=== PATIENT | female | born 1945 | race Caucasian/White ===

== ENCOUNTER 2017-03-11 09:12 | Day surgery (SDC) | payer MEDICARE ==
[~2017-03-11] VITALS: Ht 162.6 cm; Wt 68.0 kg
[~2017-03-11 09:12] MED LIST: 0.9% Sodium Chloride 1,000 ML IV SCH; ASCO1500 PO; ASPI-973 PO; B COMPLEX PO; CALC600T12 PO; CHOL10008 PO; GLUC100016 PO; LOVA20TA PO; MULT1CAP33 PO; OMEG1600 PO; OXCA150T PO; Sodium Chloride LOK Flush 10 mL Syringe IV PRN; UBID100C25 PO; fentaNYL-PF 50 mCg/mL 2 mL Inj IVPUSH PRN
[2017-03-11 09:52] VITALS: BP 110/64; PULSE 67; RESP 16; O2SAT 98
[2017-03-11] MEDS ORDERED: 0.9% Sodium Chloride 1,000 ML IV ONE (10:56)
[2017-03-11 11:00] VITALS: BP 106/57; PULSE 68; RESP 16; O2SAT 97
[2017-03-11 11:10] VITALS: BP 86/51; PULSE 76; RESP 16; O2SAT 97
[2017-03-11 11:20] VITALS: BP 103/60; PULSE 73; RESP 16; O2SAT 97
--- NOTE | 2017-03-11 23:03 | ENDO ---
[address] [address] ENDOSCOPY PROCEDURE PATIENT: KRAIG MACK : 1945 MR#: [id number] ADMIT: 03/11/2017 JOB ID: [id number] DATE: 03/11/2017 PRIMARY PROVIDER: Cora Garcia MD. PROCEDURE: 1. Colonoscopy. 2. Cold forceps polypectomy. INDICATIONS: A 71-year-old female with a personal history of colon polyps returning for surveillance. EQUIPMENT: PCF H 180 AL. SEDATION: 5 mg Versed and 100 mcg fentanyl. COMPLICATIONS: None identified. BOWEL PREPARATION: Fair, adequate exam. PROCEDURE INFORMATION: After the risks and benefits were explained, written and verbal informed consent was obtained. The patient was brought into the endoscopy suite and placed into the left lateral decubitus position. Sedation was achieved using the above-stated medications with the addition of oxygen via nasal cannula. A digital rectal examination was accomplished. No significant pathology appreciated. The scope was introduced into the rectum and advanced to the cecum as identified by the appendiceal orifice and ileocecal valve. The scope was slowly withdrawn to carefully examine the mucosa for any defects or lesions. Retroflexed views were avoided in the rectum. Multiple direct views were made through the dentate line for exclusion of pathology. The colon was decompressed. The scope removed from the patient who tolerated the procedure well. FINDINGS: Rather extensive diverticulosis through the sigmoid region. In the descending, there was a very small polyp. At first, I thought this was going to require or be best removed with a snare. The snare seemed to just come over the top of this diminutive polyp and we therefore removed it with cold forceps. I did not appreciate any other significant pathology throughout. ENDOSCOPIC DIAGNOSES: 1. Colon polyp. 2. Diverticulosis. RECOMMENDATIONS: 1. Await histopathology. 2. Repeat colonoscopy five years.
--- NOTE | 2017-03-13 19:17 | PATH ---
SURGICAL PATHOLOGY Attending Physician:Lizette Mariscal CASE STATUS: Signed Out PATIENT NAME: KRAIG MACK PID: [id number] : 1945 DATE COLLECTED:03/11/2017 17:51 SPECIMEN: Colon, Biopsy CLINICAL HISTORY: 1). COLON POLYP FINAL DIAGNOSIS: Colon, Polyp, Biopsy: Tangentially oriented portion of colorectal mucosa with features suggestive of sessile serrated adenoma. ICD10: K63.5 GROSS DESCRIPTION: The specimen is received in one formalin filled container labeled with the patient's name, sublabeled "colon polyp" and consists of a 0.3 x 0.3 x 0.3 CM portion of tissue which is entirely submitted in one cassette. 03/11/2017 [facility] ICD-9 CODES: CPT CODES: 1: 03852 Electronically Signed Out Tish Brand MD [facility] Pathology [facility] [address], [place] [address] Technical component performed at [facility], [facility] [address], [place], [address]
== END 2017-03-11 23:59 | disposition home or self-care (01) ==
LOC: END 09:12
PROVIDERS: ATTEND Internal Medicine Gastroenterology
DX: Z12.11 Encounter for screening for malignant neoplasm of colon (principal); D12.4 Benign neoplasm of descending colon; K57.30 Diverticulosis of large intestine without perforation or abscess without bleeding; Z86.010 Personal history of colon polyps; Z83.71 Family history of colonic polyps; E78.5 Hyperlipidemia, unspecified; G40.909 Epilepsy, unspecified, not intractable, without status epilepticus; M85.80 Other specified disorders of bone density and structure, unspecified site; M17.11 Unilateral primary osteoarthritis, right knee; Z87.891 Personal history of nicotine dependence; Z79.82 Long term (current) use of aspirin
CPT/HCPCS: 45380; 99153; G0500; J2250; J3010; J7030